=== PATIENT | male | born 1935 | race Caucasian/White ===

== ENCOUNTER → 2021-09-20 | Outpatient (CLI) | payer MEDICARE, BC | LOC: KOH-I 15:05 | DX: R25.1 Tremor, unspecified (principal); G31.9 Degenerative disease of nervous system, unspecified | CPT/HCPCS: 70450 ==

== ENCOUNTER → 2021-11-12 | Outpatient (CLI) | payer MEDICARE, BC | LOC: RAD 07:29 | DX: Z12.11 Encounter for screening for malignant neoplasm of colon (principal); Z86.010 Personal history of colon polyps; K57.30 Diverticulosis of large intestine without perforation or abscess without bleeding; M47.816 Spondylosis without myelopathy or radiculopathy, lumbar region | CPT/HCPCS: 74270 ==

== ENCOUNTER → 2021-11-30 | Outpatient (CLI) | payer MEDICARE, BC | LOC: LAB 12:21 | DX: Z01.810 Encounter for preprocedural cardiovascular examination (principal) | CPT/HCPCS: 93005 ==

== ENCOUNTER → 2022-03-24 | Outpatient (CLI) | payer MEDICARE, BC ==
[2022-03-24 10:09] LABS: HEMOGLOBIN 14.4 gm/dl (14.0-17.5); RED BLOOD COUNT 4.41 M/UL (4.20-5.50); WHITE BLOOD COUNT 7.4 K/UL (4.5-11.0)
== END ==
LOC: LAB 09:36
PROVIDERS: Nurse Practitioner
DX: R19.7 Diarrhea, unspecified (principal); R53.83 Other fatigue; R10.84 Generalized abdominal pain; R63.4 Abnormal weight loss
CPT/HCPCS: 36415; 80053; 83690; 85025

== ENCOUNTER → 2022-04-07 | Outpatient (CLI) | payer MEDICARE, BC | LOC: CT 10:15 | DX: R19.7 Diarrhea, unspecified (principal); R53.83 Other fatigue; R10.84 Generalized abdominal pain; R63.4 Abnormal weight loss | CPT/HCPCS: Q9967 ==